=== PATIENT | male | born 1980 | race Hispanic/Latino ===

== ENCOUNTER 2017-05-23 10:43 | Day surgery (SDC) | payer BC ==
[2017-05-19 10:58] VITALS: BMI 25.0
[2017-05-23] MEDS ORDERED: Propofol 10 mg/ml Inj (20 ML) ONE (13:18)
[2017-05-23] MEDS ORDERED: Midazolam 2 MG/2 ML VIAL ONE (13:18)
[2017-05-23] MEDS ORDERED: Bupivacaine HCl 0.25% PF (10 ml) Inj ONE (13:36)
[2017-05-23] MEDS ORDERED: Lactated Ringer's 1,000 ML IV ONE ×2 (13:50)
[2017-05-23] MEDS ORDERED: ceFAZolin IV 1 gm in Dextrose 1 GM/50 ML BAG IVPB ONE (13:58)
[2017-05-23] MEDS ORDERED: Oxycodone/Acetaminophen 5/325 mg Tab PO PRN (14:46)
[2017-05-23] MEDS: HYDROmorphone 0.5 mg/0.5 ml ISec IVP PRN ×2 (14:59→15:15)
[2017-05-23 15:53] VITALS: RESP 16; O2SAT 96
[2017-05-23 16:20] VITALS: BP 107/63; PULSE 75; TEMP 97.7
--- NOTE | 2017-05-24 01:50 | OP ---
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 PROCEDURE PERFORMED: Wide deep excision, 5 cm neoplasm of the right hip and groin region with advancement flap closure. SURGEON: Conor Smith MD ANESTHESIA: General. BLOOD LOSS: 40 mL. POSTOPERATIVE CONDITION: Stable. 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 DESCRIPTION OF PROCEDURE: The patient was taken to the operating room. General anesthesia was administered. The right groin was prepped and draped. Generous elliptical incision was made surrounding the mass, was dissected into the fascia, and completely removed. Bleeding was carefully avoided from the femoral vein and saphenous vein which region. Bleeding was controlled using the Bovie. Advancement flap closure was performed by raising full-thickness tissue flaps including fascia, making counter incisions, and bringing them together with multiple layers of Monocryl, subcuticular Monocryl, and glue. The advancement flap closure was approximately 45 sq cm. The patient tolerated the procedure well. Returned to recovery room in stable condition. Conor Smith MD
== END 2017-05-23 16:20 | disposition home or self-care (01) ==
LOC: C.SDS 10:43
PROVIDERS: ATTEND Surgery
DX: L72.0 Epidermal cyst (principal); L98.8 Other specified disorders of the skin and subcutaneous tissue
CPT/HCPCS: 11406; 88307; 88342; J0690; J1170; J2001; J2250; J2405; J2704; J3010; J7120